=== PATIENT | male | born 1975 | race Hispanic/Latino ===

== ENCOUNTER 2021-04-08 16:38 | Emergency (ER) | payer OTHER ==
[2021-04-08] MEDS ORDERED: GLUCAGON 1 MG/VIAL ONE ×2 (16:47→18:20)
[2021-04-08] MEDS ORDERED: METOCLOPRAMIDE 10 MG/2mL INJ ONE (16:48)
[2021-04-08] MEDS ORDERED: MAGNESIUM SULFATE 1 gm IVPB 1 GM/100 ML BAG IV ONE (18:21)
--- NOTE | 2021-04-08 19:40 | ER ---
Nurse's Notes [facility] Name: Atilio Xavier Age: 45 yrs Sex: Male : 1975 Arrival Date: 04/08/2021 Time: 16:40 Bed 5 Private MD: Diagnosis: Esophageal meat impaction, resolved Presentation: 04/08 16:44 Chief complaint: Patient states: food bolus stuck in esophagus x 20 minutes. Pt reports ss he is unable to tolerate PO fluids. Coronavirus screen: Client denies travel out of the [place] in the last 14 days. Ebola Screen: Patient denies exposure to infectious person. Patient denies travel to an Ebola-affected area in the 21 days before illness onset. Initial Sepsis Screen: Does the patient meet any 2 criteria? No. Patient's initial sepsis screen is negative. Does the patient have a suspected source of infection? No. Patient's initial sepsis screen is negative. Risk Assessment: Do you want to hurt yourself or someone else? Patient reports no desire to harm self or others. Onset of symptoms was April 08, 2021. 16:44 Method Of Arrival: Ambulatory ss 16:44 Acuity: GIBSON 3 ss Historical: - Allergies: 16:46 No Known Allergies; ss - Immunization history:: Client reports receiving the 2nd dose of the Covid vaccine. - Social history:: Smoking status: Patient reports the use of cigarette tobacco products, smokes one-half pack cigarettes per day. - Family history:: not pertinent. - Hospitalizations: : No recent hospitalization is reported. Screenin:48 Abuse screen: Denies threats or abuse. Denies injuries from another. Nutritional ss screening: No deficits noted. Tuberculosis screening: Never had TB. Fall Risk None identified. Assessment: 16:45 General: Appears in no apparent distress. uncomfortable, Behavior is calm, cooperative, jl7 appropriate for age. Pain: Denies pain. Neuro: Level of Consciousness is awake, alert, obeys commands, Oriented to person, place, time, situation. Cardiovascular: Patient's skin is warm and dry. Respiratory: Airway is patent Respiratory effort is even, unlabored, Respiratory pattern is regular, symmetrical, Denies shortness of breath difficulty breathing. GI: Reports Food stuck in esophagus. Derm: Skin is pink, warm \T\ dry. 18:28 Reassessment: Patient appears in no apparent distress at this time. No changes from [facility] previously documented assessment. Patient and/or family updated on plan of care and expected duration. Pain level reassessed. Patient is alert, oriented x 3, equal unlabored respirations, skin warm/dry/pink. 19:48 Reassessment: Patient is alert, oriented x 3, equal unlabored respirations, skin lp1 warm/dry/pink. Patient able to drinking fluids, reports feeling like food bolus is resolved; Provider aware Patient states feeling better. Patient states symptoms have improved. Vital Signs: 16:44 BP 129 / 84; Pulse 79; Resp 16; Temp 98.0(TE); Pulse Ox 100% on R/A; Weight 122.47 kg; ss Height 6 ft. 0 in. (182.88 cm); 18:28 BP 113 / 83; Pulse 79; Resp 15; Pulse Ox 97% ; jl7 19:49 BP 118 / 80; Pulse 75; Resp 18; Pulse Ox 99% on R/A; lp1 16:44 Body Mass Index 36.62 (122.47 kg, 182.88 cm) ED Course: 16:40 Patient arrived in ED. eb 16:41 Larry Llanes MD is Attending Physician. rn 16:46 Triage completed. ss 16:46 Arm band placed on right wrist. ss 16:48 Patient has correct armband on for positive identification. ss 16:48 Inserted saline lock: 20 gauge in right antecubital area, using aseptic technique. ss Blood collected. Patient maintains SpO2 saturation greater than 95% on room air. 16:49 Orlando Rubio RN is Primary Nurse. 7 17:00 Pulse ox on. NIBP on. 7 19:01 Attending Physician role handed off by Larry Llanes MD 7 19:01 Angel Salas MD is Attending Physician. 7 19:06 Primary Nurse role handed off by Orlando Rubio RN 5 19:06 Francisca Marroquin is Primary Nurse. tw5 19:38 Nolberto Cain MD is Referral Physician. [facility] 19:49 No provider procedures requiring assistance completed. IV discontinued, No lp1 redness/swelling at site. Pressure dressing applied. Administered Medications: 16:53 Drug: GlucaGen (glucagon) 1 mg Route: IVP; Site: right antecubital; jl7 16:55 Drug: Reglan (metoCLOPramide) 5 mg Route: IVP; Site: right antecubital; jl7 18:25 Drug: Magnesium Sulfate 1 grams Route: IVPB; Infused Over: 10 mins; Site: right jl7 antecubital; 18:27 Drug: Glucagon 1 mg Route: IVP; Site: right antecubital; jl7 Outcome: 19:39 Discharge ordered by . [facility] 19:50 Discharged to home ambulatory, with significant other. [facility] 19:50 Condition: good 19:50 Discharge instructions given to patient, Instructed on discharge instructions, follow up and referral plans. Demonstrated understanding of instructions, follow-up care. 19:50 Patient left the ED. 1 Signatures: Larry Llanes MD MD rn Smirch, Shelby, RN RN Janet Sanchez RN RN 1 Orlando Rubio RN RN [facility] Bee Noland Maurice, MD MD [facility]
--- NOTE | 2021-04-08 19:40 | EDPHYS ---
Physician Documentation [facility] Name: Atilio Xavier Age: 45 yrs Sex: Male : 1975 Arrival Date: 04/08/2021 Time: 16:40 Bed 5 Private MD: ED Physician Angel Salas HPI: 04/08 16:46 This 45 yrs old Male presents to ER via Unassigned with complaints of fajita meat stuck rn in esophagus. 16:46 The patient or guardian reports the patient has a suspected foreign body, of the rn throat. The reported likely foreign body is piece of meat. Onset: The symptoms/episode began/occurred 20 minute(s) ago. Current symptoms: foreign body sensation. Treatment Prior to Arrival: none. The patient has experienced similar episodes in the past, several times. The patient has not recently seen a physician. Patient states was eating fajita 20 minutes prior to arrival, feels like stuck in his esophagus at chest level. Reports could not swallow water, just came back. Has happened to him twice before without intervention. Denies shortness of breath or cough.. Historical: - Allergies: 16:46 No Known Allergies; ss - Immunization history:: Client reports receiving the 2nd dose of the Covid vaccine. - Social history:: Smoking status: Patient reports the use of cigarette tobacco products, smokes one-half pack cigarettes per day. - Family history:: not pertinent. - Hospitalizations: : No recent hospitalization is reported. ROS: 16:46 Constitutional: Negative for fever, chills, and weight loss, ENT: Positive foreign body rn sensation in esophagus Cardiovascular: Negative for chest pain, palpitations, and edema, Respiratory: Negative for shortness of breath, cough, wheezing, and pleuritic chest pain, Abdomen/GI: Negative for abdominal pain, nausea, vomiting, diarrhea, and constipation. Exam: 16:46 Constitutional: This is a well developed, well nourished patient who is awake, alert, rn and in no acute distress. ENT: No stridor Cardiovascular: Regular rate and rhythm. No pulse deficits. Respiratory: Speaking full sentences, unlabored. No increased work of breathing, no retractions or nasal flaring. Vital Signs: 16:44 BP 129 / 84; Pulse 79; Resp 16; Temp 98.0(TE); Pulse Ox 100% on R/A; Weight 122.47 kg; ss Height 6 ft. 0 in. (182.88 cm); 18:28 BP 113 / 83; Pulse 79; Resp 15; Pulse Ox 97% ; jl7 19:49 BP 118 / 80; Pulse 75; Resp 18; Pulse Ox 99% on R/A; lp1 16:44 Body Mass Index 36.62 (122.47 kg, 182.88 cm) ss MDM: 16:41 Patient medically screened. rn 19:36 Data reviewed: vital signs, nurses notes. Data interpreted: Pulse oximetry: on room air mh7 is 97 %. Interpretation: normal. 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 Response to treatment: the patient's symptoms have resolved after treatment, the patient's blood pressure is in an acceptable range, mental status has returned to baseline, the patient no longer shows bradycardia, the patient is not short of breath, the patient is not tachycardic, the patient's pain is gone, the patient's temperature has normalized. ED course: Feels better, well-appearing, no acute distress, vital signs stable, no focal neurological deficits. Symptoms have resolved after he will jump multiple times and bharat josé miguel. Patient tolerating p.o. intake without any difficulty. No chest pain, shortness of breath, nausea, vomiting, or other complaints. Patient request be discharged in ED at this time.. 04/08 16:44 Order name: IV Start; Complete Time: 16:57 rn Administered Medications: 16:53 Drug: GlucaGen (glucagon) 1 mg Route: IVP; Site: right antecubital; jl7 16:55 Drug: Reglan (metoCLOPramide) 5 mg Route: IVP; Site: right antecubital; jl7 18:25 Drug: Magnesium Sulfate 1 grams Route: IVPB; Infused Over: 10 mins; Site: right jl7 antecubital; 18:27 Drug: Glucagon 1 mg Route: IVP; Site: right antecubital; jl7 Disposition Summary: 04/08/21 19:39 Discharge Ordered Location: Home [facility] Problem: an acute exacerbation [facility] Symptoms: are resolved [facility] Condition: Stable [facility] Diagnosis - Esophageal meat impaction, resolved [facility] Followup: [facility] - With: Private Physician - When: 1 - 2 days - Reason: Worsening of condition, Recheck today's complaints, Continuance of care, Re-evaluation by your physician Followup: [facility] - With: Nolberto Cain MD - When: 1 - 2 days - Reason: Worsening of condition, Recheck today's complaints Discharge Instructions: - Discharge Summary Sheet [facility] - Swallowed Foreign Body, Adult, [id number] [facility] Forms: - Medication Reconciliation Form [facility] - Thank You Letter [facility] - Antibiotic Education [facility] - Prescription Opioid Use [facility] Signatures: Larry Llanes MD MD rn Smirch, Shelby, RN RN ss Leal, Jahala, RN RN 7 Angel Salas MD MD [facility]
[2021-04-08 19:58] VITALS: TEMP 98
[2021-04-08 20:00] VITALS: BP 118/80; O2SAT 99
== END 2021-04-08 19:50 | disposition home or self-care (01) ==
LOC: ER 16:38
DX: T18.128A Food in esophagus causing other injury, initial encounter (principal); F17.210 Nicotine dependence, cigarettes, uncomplicated
CPT/HCPCS: 96375; 96374; 99284; J1610 ×2; J2765; J3475